=== PATIENT | female | born 1980 | race Caucasian/White ===

== ENCOUNTER 2017-06-02 10:24 | Emergency (ER) | payer OTHER ==
[~2017-06-02] VITALS: Ht 152.4 cm; Wt 55.5 kg
[2017-06-02 10:38] VITALS: Ht 152.4 cm; Wt 55.5 kg
[2017-06-02] MEDS ORDERED: FLUORESCEIN STRIP BOTH EYES ONE (12:00)
[2017-06-02] MEDS ORDERED: TETRACAINE 0.5% 4 ML OPH BOTH EYES ONE (12:00)
--- NOTE | 2017-06-02 12:33 | RADRPT ---
PROCEDURE: CT scan facial bones CLINICAL INDICATION: Trauma. Left eye facial injury. Pain. TECHNIQUE: CT scan of the face was performed on the a high-resolution multidetector CT scanner wit h multiple contiguous axial images obtained through the face. Coronal and sagittal reformatted imag es were obtained from the axial source images. One or more the following does reduction techniques w ere utilized: Automated exposure control, adjustment of the mA/ or kV according to patient's size, o r use of iterative reconstruction technique. Exam CTDI = 29.43 mGy and the DLP = 519.61 mGy-cm. COMPARISON: None available. FINDINGS: Mild left periorbital soft tissue swelling is noted. No acute fracture or dislocation is seen. The orbital globes are unremarkable. Nasal septum is intact. Paranasal sinuses demonstrate mild scatter ed mucosal thickening mainly in ethmoid air cell. Multiple dental caries and fillings are noted. IMPRESSION: 1. Mild left periorbital soft tissue swelling without underlying fracture. No acute facial fracture or dislocation. RPTAT: JJ .Roxy Pompa MD, Date Time Electronically viewed and signed by .Roxy Pompa MD, on 06/02/2017 12:33 .N/
[2017-06-02] MEDS ORDERED: IBUP200C11 PO (12:42)
--- NOTE | 2017-06-02 12:56 | ERD ---
ER Documentation Chief Complaint Date/Time DATE: 06/02/17 TIME: 12:51 Chief Complaint LEFT EYE INJURY DUE TO BEING HIT BY FOOTBALL HPI 36-year-old female complaining of left eye pain after being hit with a football yesterday. Patient wears but was not wearing them yesterday at time of incident. Patient has a sinus stent placed months ago and she is concerned about possible movement. No bloody nose. Denies mild peripheral blurry vision. No loss of consciousness at time of incident. No dizziness. No headaches. No vomiting. No confusion. ROS All systems reviewed and are negative except as per history of present illness. Medications Home Meds Active Scripts Ibuprofen* (Advil*) 200 Mg Capsule, 200 MG PO Q6H Y for PAIN, #30 CAP Prov:BRISSA VILLA PA-C 06/02/17 Allergies Allergies: Coded Allergies: No Known Allergy (Unverified , 06/02/17) PMhx/Soc Medical and Surgical Hx: pt denies Medical Hx, pt denies Surgical Hx Hx Alcohol Use: Yes Hx Substance Use: No Hx Tobacco Use: No Smoking Status: Never smoker Physical Exam Vitals Vital Signs Date Time Temp Pulse Resp B/P Pulse Ox O2 Delivery O2 Flow Rate FiO2 06/02/17 10:38 98.3 74 18 146/78 100 Physical Exam GENERAL: The patient is well-appearing, well-nourished, in no acute distress HEENT: Atraumatic. Conjunctivae are pink. Pupils equal, round, and reactive to light. There is no scleral icterus. Tympanic membranes clear bilaterally. Oropharynx clear. Extraocular movements intact. NECK: C-spine is soft and supple. There is no meningismus. There is no cervical lymphadenopathy. CHEST: Clear to auscultation bilaterally. There are no rales, wheezes or rhonchi. HEART: Regular rate and rhythm. No murmurs, clicks, rubs or gallops. No S3 or S4. NEUROLOGIC: Alert and oriented. Cranial nerves II through XII intact. Motor strength in all 4 extremities with 5 out of 5 strength. Sensation grossly intact. Normal speech and gait. SKIN: Ecchymosis noted around left eye. Lacerations or abrasions Results 24 hrs Current Medications Medications (Trade) Dose Ordered Sig/Kait Route PRN Reason Start Time Stop Time Status Last Admin Dose Admin Tetracaine HCl (Tetracaine 0.5% Steri-Unit Maria L) 1 drop ONCE ONCE BOTH EYES 06/02/17 12:00 06/02/17 12:01 DC Fluorescein Sodium (Tkgsn-S-Rjafj) 1 strip ONCE ONCE BOTH EYES 06/02/17 12:00 06/02/17 12:01 DC Procedures/MDM Fluoro Stain: No lacerations or abrasions. No foreign body. No stain uptake. DIAGNOSTIC IMAGING REPORT Patient: DELORIS FIELDS : 1980 Age: 36 Sex: F MR #: [id number] DOS: 06/02/17 1123 Ordering MD: DONALD VILLA PA-C Location: [facility] Room/Bed: PROCEDURE: CT scan facial bones CLINICAL INDICATION: Trauma. Left eye facial injury. Pain. TECHNIQUE: CT scan of the face was performed on the a high-resolution multidetector CT scanner with multiple contiguous axial images obtained through the face. Coronal and sagittal reformatted images were obtained from the axial source images. One or more the following does reduction techniques were utilized : Automated exposure control, adjustment of the mA/ or kV according to patient' s size, or use of iterative reconstruction technique. Exam CTDI = 29.43 mGy and the DLP = 519.61 mGy-cm. COMPARISON: None available. FINDINGS: Mild left periorbital soft tissue swelling is noted. No acute fracture or dislocation is seen. The orbital globes are unremarkable. Nasal septum is intact. Paranasal sinuses demonstrate mild scattered mucosal thickening mainly in ethmoid air cell. Multiple dental caries and fillings are noted. IMPRESSION: 1. Mild left periorbital soft tissue swelling without underlying fracture. No acute facial fracture or dislocation. MDM:36-year-old female complaining of injury to the left eye. I have low suspicion for facial fracture. Low suspicion for ocular injury. Low suspicion for visual deficit. Patient sustained a bruise to left eye however does not appear to have any other ocular deficits. Patient is discharged with strict ER precautions and recommended follow-up with primary care within 1-2 days for close evaluation. Patient is told if symptoms change or worsen to return the ER. Departure Diagnosis: Primary Impression: Eye injury Condition: Stable Patient Instructions: Black Eye, Contusion, Eye Referrals: COMMUNITY CLINICS YOU HAVE RECEIVED A MEDICAL SCREENING EXAM AND THE RESULTS INDICATE THAT YOU DO NOT HAVE A CONDITION THAT REQUIRES URGENT TREATMENT IN THE EMERGENCY DEPARTMENT. FURTHER EVALUATION AND TREATMENT OF YOUR CONDITION CAN WAIT UNTIL YOU ARE SEEN IN YOUR DOCTORS OFFICE WITHIN THE NEXT 1-2 DAYS. IT IS YOUR RESPONSIBILITY TO MAKE AN APPOINTMENT FOR FOLOW-UP CARE. IF YOU HAVE A PRIMARY DOCTOR --you should call your primary doctor and schedule an appointment IF YOU DO NOT HAVE A PRIMARY DOCTOR YOU CAN CALL OUR PHYSICIAN REFERRAL HOTLINE AT IF YOU CAN NOT AFFORD TO SEE A PHYSICIAN YOU CAN CHOSE FROM THE FOLLOWING [facility] [address] [facility] [facility] [address] [facility] [facility] [address] [facility]. [facility] [address] [facility]. [facility] [address] [facility]. [facility] [address] Additional Instructions: FOLLOW UP WITH YOUR PRIMARY CARE PHYSICIAN TOMORROW.Return to this facility if you are not improving as expected. BRISSA VILLA PA-C Jun 02, 2017 12:56
== END 2017-06-02 13:09 | disposition home or self-care (01) ==
LOC: FTE 10:24
DX: S05.92XA Unspecified injury of left eye and orbit, initial encounter (principal); W21.01XA Struck by football, initial encounter; Y92.9 Unspecified place or not applicable
CPT/HCPCS: 70486; Z7502; Z7610

== ENCOUNTER 2017-11-11 22:24 | Emergency (ER) | END 2017-11-12 03:11 | disposition home or self-care (01) ==

== ENCOUNTER 2019-01-18 09:20 | Emergency (ER) | payer OTHER ==
[~2019-01-18] VITALS: Ht 154.9 cm; Wt 55.2 kg
[~2019-01-18 09:20] MED LIST: HYDR-4011 PO; IBUP-1542 PO; IBUP200C11 PO
[2019-01-18 09:26] VITALS: Ht 154.9 cm; Wt 55.2 kg
[2019-01-18] MEDS ORDERED: SOD CHLORIDE 0.9% 1,000 ML IV STA (10:07)
--- NOTE | 2019-01-18 10:24 | ERD ---
ER Documentation Chief Complaint Chief Complaint left arm numbness & weakness gotten worse, seen @ [facility] 3 days ago HPI This is a very pleasant 38-year-old female previously healthy that presents to the emergency department complaining of numbness and weakness for the past 12 days. The patient indicated when her symptoms initially started she was complaining of numbness of her left upper extremity. She indicated 5 days later the numbness progressed to her left leg. At that time she went to an urgent care clinic and they performed radiographic imaging of her upper back and indicated this likely was a result of a muscle spasm. Therefore they placed the patient on Flexeril and Medrol Dosepak. The patient indicated however that she did not fill the Flexeril but has been taking the Medrol Dosepak. She stated that her symptoms have progressively worsened. She now complains of severe burning in her upper and lower back. She states she is been unable to sleep due to the severity of the pain. Given that her symptoms worsened she went to [facility] emergency room on January 15, 2019, 3 days prior to arrival. She indicated the performed a CT scan of her brain and indicated that she was not having a stroke. However the patient indicates that she was instructed to follow-up with her primary care physician and has an appointment in 4 days, however upon awakening this morning the patient stated she started to notice significant weakness in her left leg. She stated she felt unsteady in her gait and felt as though she was going to pass out. She denied a headache. She has no neck pain. She denies any recent or remote trauma to her head or neck. She denies any saddle anesthesia. She denies any changes in her bladder or bowel frequency. She has no changes in vision. She has no chest pain. She is no shortness of breath at rest or exertion. She denies any recent travel. ROS All systems reviewed and are negative except as per history of present illness. Medications Home Meds Reported Medications Methylprednisolone (Methylprednisolone) 4 Mg Tab.ds.pk, 4 MG ORAL DAILY 01/18/19 Discontinued Scripts Hydrocodone/Acetaminophen ([place] 5-325 Tablet) 1 Each Tablet, 1 TAB PO Q6H PRN for PAIN, #7 TAB Prov:POLLO,CHIDI 11/12/17 Ibuprofen* (Motrin*) 600 Mg Tab, 600 MG PO Q6, #30 TAB Prov:POLLO,CHIDI 11/12/17 Ibuprofen* (Advil*) 200 Mg Capsule, 200 MG PO Q6H PRN for PAIN, #30 CAP Prov:BRISSA VILLA PA-C 06/02/17 Allergies Allergies: Coded Allergies: No Known Allergy (Unverified , 06/02/17) PMhx/Soc History of Surgery: No Anesthesia Reaction: No Hx Neurological Disorder: No Hx Respiratory Disorders: No Hx Cardiac Disorders: No Hx Psychiatric Problems: No Hx Miscellaneous Medical Probl: No Hx Alcohol Use: Yes Hx Substance Use: No Hx Tobacco Use: No Physical Exam Vitals Vital Signs Date Temp Pulse Resp B/P (MAP) Pulse Ox O2 O2 Flow FiO2 Time Delivery Rate 01/18/19 98.4 79 18 136/83 7 09:26 (100) Physical Exam Constitutional:Well-developed. Well-nourished. HEENT:Normocephalic. Atraumatic.Pupils were equal round reactive to light. Moist mucous membranes.No tonsillar exudates. Neck: No nuchal rigidity. No lymphadenopathy. No posterior cervical spine tenderness or step-offs. Respiratory: Not using accessory muscles of respiration.Lungs were clear to auscultation bilaterally. No rhonchi. No rales. No wheezing. Cardiovascular: Regular rate regular rhythm.No murmurs. No rubs were appreciated.S1, S2 normal. Distal pulses are palpable 2+ bilaterally. GI: Abdomen was soft. Nontender. Non Distended. No pulsatile abdominal masses or bruits. No rebound. No guarding. Bowel sounds were present and normal. Muscle skeletal: Full range of motion of both the upper and lower extremities bilaterally.Normal muscle tone.No assymetrical calf tenderness or swelling. Muscular strength weekend of the left lower extremity 3 out of 5 compared to 5 out of 5 in the right lower extremity Skin: No petechia, no purpura. No lesions on the palms or the soles of the feet. No maculopapular rash. NEURO: Patient was alert, awake, orientated x3.No facial droop. Gait observed and no ataxia.Speech had regular rate and rhythm. Decreased sensation to sharp and dull of the left upper and lower extremity with normal sensation of the right upper and lower extremity. Romberg sign negative. No pronator drift. Result Diagram: 01/18/19 1035 01/18/19 1035 Results 24 hrs Laboratory Tests Test 01/18/19 10:35 White Blood Count 8.0 10^3/ul Red Blood Count 4.76 10^6/ul Hemoglobin 14.3 g/dl Hematocrit 42.7 % Mean Corpuscular Volume 89.7 fl Mean Corpuscular Hemoglobin 30.0 pg Mean Corpuscular Hemoglobin Concent 33.5 g/dl Red Cell Distribution Width 12.3 % Platelet Count 254 10^3/UL Mean Platelet Volume 10.5 fl Immature Granulocytes % 0.400 % Neutrophils % 68.5 % Lymphocytes % 23.0 % Monocytes % 7.0 % Eosinophils % 0.6 % Basophils % 0.5 % Nucleated Red Blood Cells % 0.0 /100WBC Immature Granulocytes # 0.030 10^3/ul Neutrophils # 5.5 10^3/ul Lymphocytes # 1.8 10^3/ul Monocytes # 0.6 10^3/ul Eosinophils # 0.1 10^3/ul Basophils # 0.0 10^3/ul Nucleated Red Blood Cells # 0.0 10^3/ul Prothrombin Time 12.6 Sec Prothrombin Time Ratio 1.0 INR International Normalized Ratio 0.93 Activated Partial Thromboplast Time 27.4 Sec Urine Color YELLOW Urine Clarity CLEAR Urine pH 5.0 Urine Specific [place] 1.017 Urine Ketones NEGATIVE mg/dL Urine Nitrite NEGATIVE mg/dL Urine Bilirubin NEGATIVE mg/dL Urine Urobilinogen NEGATIVE mg/dL Urine Leukocyte Esterase NEGATIVE Neo/ul Urine Microscopic RBC 3 /HPF Urine Microscopic WBC 1 /HPF Urine Hemoglobin 2+ mg/dL Urine Glucose NEGATIVE mg/dL Urine Total Protein NEGATIVE mg/dl Sodium Level 142 mmol/L Potassium Level 3.9 mmol/L Chloride Level 106 mmol/L Carbon Dioxide Level 28 mmol/L Anion Gap 8 Blood Urea Nitrogen 12 mg/dl Creatinine 0.53 mg/dl Est Glomerular Filtrat Rate mL/min > 60 mL/min Glucose Level 99 mg/dl Lactic Acid Level 1.3 mmol/L Calcium Level 9.4 mg/dl Total Bilirubin 0.4 mg/dl Direct Bilirubin 0.00 mg/dl Indirect Bilirubin 0.4 mg/dl Aspartate Amino Transf (AST/SGOT) 20 IU/L Alanine Aminotransferase (ALT/SGPT) 27 IU/L Alkaline Phosphatase 50 IU/L Troponin I < 0.012 ng/ml Total Protein 7.9 g/dl Albumin 4.4 g/dl Globulin 3.50 g/dl Albumin/Globulin Ratio 1.25 Amylase Level 108 U/L Lipase 97 U/L Current Medications Medications Dose Sig/Kait Start Time Status Last (Trade) Ordered Route PRN Stop Time Admin Dose Reason Admin Sodium 1,000 ml @ Q1H STAT 01/18/19 DC 01/18/19 Chloride 1,000 mls/hr IV 10:07 10:41 01/18/19 11:06 Procedures/MDM This is a 38-year-old female that presented to the emergency department with progressive weakness and numbness of the left upper and lower extremity. The patient had already received a CT scan at [facility] 3 days prior to arrival which she stated was normal with no intracerebral hemorrhage or mass- effect. The patient was placed on a departmental buyer continuous pulse oximetry and IV access was established by nursing staff. The patient had no severe electrolyte abnormalities. I attempted to ambulate the patient and she was able to ambulate with little difficulty. Therefore I did not feel the patient was a fall risk. I did speak with the [facility] physician Dr. Chávez who kindly stated he will arrange for an outpatient MRI as well as a neurology evaluation. Given that the patient did have numbness and tingling of her left posterior upper extremity I did feel is necessary to obtain an EKG to rule out for atypical myocardial infarction. 12 Lead EKG tracing ordered and reviewed by myself showed: Normal sinus rhythm of 90 bpm and no arrhythmia. MI interval normal. QRS duration normal. No ST segment elevation No ST segment depression. No changes consistent with acute ischemia. The patient was discharged home in fair condition. They were instructed to return to the emergency department at any time if there was any worsening of their condition. The patient stated they would follow up with their PCP in the next 24-48 hours to initiate a suitable medication regimen under the care of their PCP as well as to allow their PCP to monitor any drug reactions. The patient was discharged home with prescriptions after they gave informed consent to the new medication. They were also fully informed by myself on the adverse effects and adverse drug interactions in order to provide adequate safeguards to prevent possible adverse reactions to medications. Departure Diagnosis: Primary Impression: Weakness of left leg Additional Impression: Numbness Condition: IVA Chaves MD January 18, 2019 10:24
[2019-01-18] MEDS ORDERED: METH4TAB10 ORAL (10:42)
[2019-01-18 12:51] VITALS: BP 132/75; PULSE 87; RESP 17
== END 2019-01-18 12:51 | disposition home or self-care (01) ==
LOC: E/R 09:20
DX: R20.0 Anesthesia of skin (principal); R53.1 Weakness
CPT/HCPCS: 80053; 81001; 82150; 83605; 83690; 84484; 85025; 85610; 85730; 87086; 93005; J7030; Z7502